=== PATIENT | male | born 1950 | race Caucasian/White ===

== ENCOUNTER → 2022-11-13 06:51 | Day surgery (SDC) | payer OTHER, SELFPAY ==
[2022-11-08 09:24] VITALS: BMI 31.6
--- NOTE | 2022-11-10 07:56 | MHC.SHP ---
Pre-Procedural Eval Section A Date of Service: 11/10/22 The patient is an INPATIENT: No Changes since office visit: No Cold of Flu in the past 2 weeks, No New Medical Problems, No Changes in Medication and No Patient answered all questions The History & Physical has been completed within 30 days and I have reviewed it.: Yes Section B Chief Complaint: Age-related nuclear cataract, right eye Allergies: Allergies Allergy/AdvReac Type Severity Reaction Status Date / Time Xyragcb-SSY-WzS Reductase AdvReac Intermediate Fatigue Verified 11/08/22 09:24 Inhibitor [Vaorhwz-Yoz-Tlr Reductase Inhibitor] Plan Diagnosis/Plan: Unchanged I have reviewed the history and physical and performed a pertinent physical examination on my patient. No changes have occurred unless specified. Time Spent With Patient Time: Total time managing care of this patient today ____ minutes.
--- NOTE | 2022-11-10 09:40 | HO.ANESPROP2 ---
Documented by User: Halie Blackmon NP 11/10/22 09:40 HPI - Anesthesia Eval Consult details Narrative: 72yo M for Right Cataract Extraction IOL Insertion PCP cleared No previous cataract on record PMF Active Problems Active Problems: All Active Problems (Updated 11/08/22 @ 08:58 by Xuan Morales RN) Insect bite (Acute) Past Medical History Medical History BPH (benign prostatic hyperplasia) Cirrhosis COPD (chronic obstructive pulmonary disease) Diabetes Elevated cholesterol Esophageal varices Fatty liver History of COVID-19 HTN (hypertension) RLS (restless legs syndrome) Sleep apnea Surgical History Surgical History H/O colonoscopy History of esophagogastroduodenoscopy (EGD) History of prostate surgery Social History Social History Patient Tobacco Use Status: Former Tobacco user Quit Date: 1999 Tobacco use type: Cigarette Advance Directives: No Advance Directives Information Provided: Yes Meds Allergies Allergy/AdvReac Type Severity Reaction Status Date / Time Qsqqyli-ZKG-NiW Reductase AdvReac Intermediate Fatigue Verified 11/08/22 09:24 Inhibitor [Modfqlb-Pby-Upp Reductase Inhibitor] Home Medications Medication Instructions Recorded Confirmed Last Taken Type albuterol sulfate 90 mcg/actuation 90 mcg inhalation Q4H PRN Wheezing 12/24/20 11/08/22 Unknown History aerosol inhaler (ProAir HFA) doxazosin 8 mg tablet 8 mg PO DAILY 12/24/20 11/08/22 Unknown History finasteride 5 mg tablet 5 mg PO DAILY 12/24/20 11/08/22 Unknown History fluticasone fur. 100 mcg-umeclid 1 ea inhalation DAILY 12/24/20 11/08/22 Unknown History 62.5 mcg-vilant 25 mcg inhalat.powder (Trelegy Ellipta) fluticasone propionate 50 1 spray intranasal DAILY 12/24/20 11/08/22 Unknown History mcg/actuation nasal spray,suspension loratadine 10 mg tablet 10 mg PO DAILY 12/24/20 11/08/22 Unknown History metformin 500 mg tablet,extended 1,000 mg PO BID 12/24/20 11/08/22 Unknown History release 24 hr ropinirole 1 mg tablet 1 mg PO BEDTIME 12/24/20 11/08/22 Unknown History valsartan 40 mg tablet 40 mg PO DAILY 12/24/20 11/08/22 Unknown History dulaglutide 1.5 mg/0.5 mL 1.5 mg subcut QWEEK 11/08/22 11/08/22 Unknown History subcutaneous pen injector (Trulicity) furosemide 40 mg tablet 40 mg PO DAILY 11/08/22 11/08/22 Unknown History nadolol 20 mg tablet 20 mg PO DAILY 11/08/22 11/08/22 Unknown History omeprazole 10 mg capsule,delayed 10 mg PO DAILY 11/08/22 11/08/22 Unknown History release Exam Exam Date and Time: November 10, 2022 0940 Height,Weight and Vital Signs: Height 5 ft 7 in Weight 91.626 kg Assessment and Plan Assessment Anesthesia Assessment: Chart Reviewed Documented by User: Jenni Dotson MD 11/13/22 08:45 [facility] Past Medical History Medical History BPH (benign prostatic hyperplasia) Cirrhosis COPD (chronic obstructive pulmonary disease) Diabetes Elevated cholesterol Esophageal varices Fatty liver History of COVID-19 HTN (hypertension) RLS (restless legs syndrome) Sleep apnea Surgical History Surgical History H/O colonoscopy History of esophagogastroduodenoscopy (EGD) History of prostate surgery History of Problems with Anesthesia: No Social History Social History Patient Tobacco Use Status: Former Tobacco user Quit Date: 1999 Tobacco use type: Cigarette Advance Directives: No Advance Directives Information Provided: Yes Meds Allergies Allergy/AdvReac Type Severity Reaction Status Date / Time Kdojcgf-SIX-DbT Reductase AdvReac Intermediate Fatigue Verified 11/08/22 09:24 Inhibitor [Eiedqap-Hmg-Mbj Reductase Inhibitor] Home Medications Medication Instructions Recorded Confirmed Last Taken Type albuterol sulfate 90 mcg/actuation 90 mcg inhalation Q4H PRN Wheezing 12/24/20 11/08/22 Unknown History aerosol inhaler (ProAir HFA) doxazosin 8 mg tablet 8 mg PO DAILY 12/24/20 11/08/22 Unknown History finasteride 5 mg tablet 5 mg PO DAILY 12/24/20 11/08/22 Unknown History fluticasone fur. 100 mcg-umeclid 1 ea inhalation DAILY 12/24/20 11/08/22 Unknown History 62.5 mcg-vilant 25 mcg inhalat.powder (Trelegy Ellipta) fluticasone propionate 50 1 spray intranasal DAILY 12/24/20 11/08/22 Unknown History mcg/actuation nasal spray,suspension loratadine 10 mg tablet 10 mg PO DAILY 12/24/20 11/08/22 Unknown History metformin 500 mg tablet,extended 1,000 mg PO BID 12/24/20 11/08/22 Unknown History release 24 hr ropinirole 1 mg tablet 1 mg PO BEDTIME 12/24/20 11/08/22 Unknown History valsartan 40 mg tablet 40 mg PO DAILY 12/24/20 11/08/22 Unknown History dulaglutide 1.5 mg/0.5 mL 1.5 mg subcut QWEEK 11/08/22 11/08/22 Unknown History subcutaneous pen injector (Trulicity) furosemide 40 mg tablet 40 mg PO DAILY 11/08/22 11/08/22 Unknown History nadolol 20 mg tablet 20 mg PO DAILY 11/08/22 11/08/22 Unknown History omeprazole 10 mg capsule,delayed 10 mg PO DAILY 11/08/22 11/08/22 Unknown History release Exam Airway Mallampati Class: III TM Dist: >3cm Neck ROM: Full Loose/Missing/Broken Teeth: No Heart: RRR Lungs: CTA Assessment and Plan Assessment Anesthesia Assessment: Anesthesia Plan Discussed Final Anesthetic Review History of Problems with Anesthesia: No NPO: Yes ASA Class: III Final Preanesthetic Review: Meds/Allgs Chart Reviewed, Consent Obtained/Reviewed and Anes Risks/Benef Reviewed Patient Risk: Intermediate Procedure Risk: Low Anesthetic Plan Anesthetic Plan: MAC: Disposition: Standard PACU
--- NOTE | 2022-11-13 09:21 | HO.PNOPHT ---
Ophthalmology Procedure Procedure Date of Service: 11/13/22 Ophthalmology Viscoelastic: Bessie Cosbyt Dual Pack Pro Ophthalmology Lenses: TECELY [id number] (21) Procedure Notes: PREOPERATIVE DIAGNOSIS: Decreased visual acuity right eye secondary to cataract POSTOPERATIVE DIAGNOSIS: Same PROCEDURE: Right cataract extraction with intraocular lens insertion SURGEON: Gal Campuzano M.D. ANESTHESIA: Topical/MAC ESTIMATED BLOOD LOSS: None COMPLICATIONS: None After obtaining informed consent, the patient was brought to the operating room suite and placed in the supine position. After adequate sedation per anesthesia, topical drops of Tetracaine were given to the right eye. The eye was then prepped and draped in the usual sterile fashion. The operating room microscope was then positioned over the operative eye and a lid speculum placed. A paracentesis was created. Viscoelastic was then instilled into the anterior chamber. A three plane incision was then created temporally, utilizing a 2.85 mm keratome. Capsulotomy forceps were then utilized to create a circular tear capsulotomy. Hydrodissection and hydrodelineation were carried out until adequate mobilization of the nucleus occurred. Phacoemulsification was then utilized to remove the dense central nucleus followed by removal of the cortical material utilizing the automated aspiration irrigation unit. Viscoelastic was instilled into the posterior capsular bag followed by placement of a posterior chamber intraocular lens without difficulty. The residual Viscoelastic was then removed utilizing the automated IA machine. The wound was checked and found to be watertight. The patient tolerated the procedure well and the lid speculum was removed. Intracameral injection of Vigamox 0.1 mL followed by a subtenon injection of Kenalog-40 0.2 mL were administered. The patient will be seen in the a.m.
== END | disposition home or self-care (01) ==
PROVIDERS: PCP Internal Medicine; Visit Provider Ophthalmology
PROC: (CPT 66985; principal; 2022-11-13 09:20)
DX: H25.11 Age-related nuclear cataract, right eye (principal); H54.7 Unspecified visual loss; J44.9 Chronic obstructive pulmonary disease, unspecified; K21.9 Gastro-esophageal reflux disease without esophagitis; E11.9 Type 2 diabetes mellitus without complications; I10 Essential (primary) hypertension; Z87.891 Personal history of nicotine dependence; E78.5 Hyperlipidemia, unspecified; Z79.84 Long term (current) use of oral hypoglycemic drugs; Z79.85 Long-term (current) use of injectable non-insulin antidiabetic drugs; Z79.899 Other long term (current) drug therapy
CPT/HCPCS: 66984; 82947; J3010; J3301; V2632

== ENCOUNTER 2022-11-27 06:19 | Day surgery (SDC) | payer OTHER, SELFPAY ==
[2022-11-08 09:26] VITALS: BMI 31.6
--- NOTE | 2022-11-24 07:57 | MHC.SHP ---
Pre-Procedural Eval Section A Date of Service: 11/24/22 The patient is an INPATIENT: No Changes since office visit: No Cold of Flu in the past 2 weeks, No New Medical Problems, No Changes in Medication and No Patient answered all questions The History & Physical has been completed within 30 days and I have reviewed it.: Yes Section B Chief Complaint: Age-related nuclear cataract, left eye Allergies: Allergies Allergy/AdvReac Type Severity Reaction Status Date / Time Orrmrvf-OSZ-FfD Reductase AdvReac Intermediate Fatigue Verified 11/08/22 09:24 Inhibitor [Xrehbex-Kmj-Ung Reductase Inhibitor] Plan Diagnosis/Plan: Unchanged I have reviewed the history and physical and performed a pertinent physical examination on my patient. No changes have occurred unless specified. Time Spent With Patient Time: Total time managing care of this patient today ____ minutes.
--- NOTE | 2022-11-24 14:45 | HO.ANESPROP2 ---
Documented by User: Halie Blackmon NP 11/24/22 14:46 HPI - Anesthesia Eval Consult details Narrative: 72yo M for Left Cataract Extraction IOL Insertion PCP cleared Right eye 11/13/22: Fent 50 PMFSH Active Problems Active Problems: All Active Problems (Updated 11/08/22 @ 08:58 by Xuan Morales RN) Insect bite (Acute) Past Medical History Medical History BPH (benign prostatic hyperplasia) Cirrhosis COPD (chronic obstructive pulmonary disease) Diabetes Elevated cholesterol Esophageal varices Fatty liver History of COVID-19 HTN (hypertension) RLS (restless legs syndrome) Sleep apnea Surgical History Surgical History H/O colonoscopy History of esophagogastroduodenoscopy (EGD) History of prostate surgery History of Problems with Anesthesia: No Social History Social History Patient Tobacco Use Status: Former Tobacco user Quit Date: 25 yrs ago Tobacco use type: Cigarette Use of substances other than those prescribed or required for medical reasons: No Are you DNR?: No Advance Directives: No Advance Directives Information Provided: Yes Meds Allergies Allergy/AdvReac Type Severity Reaction Status Date / Time Zaotqfv-YRG-YfL Reductase AdvReac Intermediate Fatigue Verified 11/27/22 07:19 Inhibitor [Hjxbaku-Uko-Ehi Reductase Inhibitor] Home Medications Medication Instructions Recorded Confirmed Last Taken Type albuterol sulfate 90 mcg/actuation 90 mcg inhalation Q4H PRN Wheezing 12/24/20 11/08/22 Unknown History aerosol inhaler (ProAir HFA) doxazosin 8 mg tablet 8 mg PO DAILY 12/24/20 11/08/22 Unknown History finasteride 5 mg tablet 5 mg PO DAILY 12/24/20 11/08/22 Unknown History fluticasone fur. 100 mcg-umeclid 1 ea inhalation DAILY 12/24/20 11/27/22 11/27/22 06:00 History 62.5 mcg-vilant 25 mcg inhalat.powder (Trelegy Ellipta) fluticasone propionate 50 1 spray intranasal DAILY 12/24/20 11/08/22 Unknown History mcg/actuation nasal spray,suspension loratadine 10 mg tablet 10 mg PO DAILY 12/24/20 11/08/22 Unknown History metformin 500 mg tablet,extended 1,000 mg PO BID 12/24/20 11/08/22 Unknown History release 24 hr ropinirole 1 mg tablet 1 mg PO BEDTIME 12/24/20 11/08/22 Unknown History valsartan 40 mg tablet 40 mg PO DAILY 12/24/20 11/08/22 Unknown History dulaglutide 1.5 mg/0.5 mL 1.5 mg subcut QWEEK 11/08/22 11/08/22 Unknown History subcutaneous pen injector (Trulicity) furosemide 40 mg tablet 40 mg PO DAILY 11/08/22 11/08/22 Unknown History nadolol 20 mg tablet 20 mg PO DAILY 11/08/22 11/08/22 Unknown History omeprazole 10 mg capsule,delayed 10 mg PO DAILY 11/08/22 11/08/22 Unknown History release Exam Exam Date and Time: November 24, 2022 1445 Height,Weight and Vital Signs: Height 5 ft 7 in Weight 91.626 kg Assessment and Plan Assessment Anesthesia Assessment: Chart Reviewed Final Anesthetic Review History of Problems with Anesthesia: No Documented by User: Jenni Dotson MD 11/27/22 07:43 [facility] Past Medical History Medical History BPH (benign prostatic hyperplasia) Cirrhosis COPD (chronic obstructive pulmonary disease) Diabetes Elevated cholesterol Esophageal varices Fatty liver History of COVID-19 HTN (hypertension) RLS (restless legs syndrome) Sleep apnea Surgical History Surgical History H/O colonoscopy History of esophagogastroduodenoscopy (EGD) History of prostate surgery Social History Social History Patient Tobacco Use Status: Former Tobacco user Quit Date: 25 yrs ago Tobacco use type: Cigarette Use of substances other than those prescribed or required for medical reasons: No Are you DNR?: No Advance Directives: No Advance Directives Information Provided: Yes Meds Allergies Allergy/AdvReac Type Severity Reaction Status Date / Time Krxjfzr-ICP-TxL Reductase AdvReac Intermediate Fatigue Verified 11/27/22 07:19 Inhibitor [Nksvbmi-Ved-Lpe Reductase Inhibitor] Home Medications Medication Instructions Recorded Confirmed Last Taken Type albuterol sulfate 90 mcg/actuation 90 mcg inhalation Q4H PRN Wheezing 12/24/20 11/08/22 Unknown History aerosol inhaler (ProAir HFA) doxazosin 8 mg tablet 8 mg PO DAILY 12/24/20 11/08/22 Unknown History finasteride 5 mg tablet 5 mg PO DAILY 12/24/20 11/08/22 Unknown History fluticasone fur. 100 mcg-umeclid 1 ea inhalation DAILY 12/24/20 11/27/22 11/27/22 06:00 History 62.5 mcg-vilant 25 mcg inhalat.powder (Trelegy Ellipta) fluticasone propionate 50 1 spray intranasal DAILY 12/24/20 11/08/22 Unknown History mcg/actuation nasal spray,suspension loratadine 10 mg tablet 10 mg PO DAILY 12/24/20 11/08/22 Unknown History metformin 500 mg tablet,extended 1,000 mg PO BID 12/24/20 11/08/22 Unknown History release 24 hr ropinirole 1 mg tablet 1 mg PO BEDTIME 12/24/20 11/08/22 Unknown History valsartan 40 mg tablet 40 mg PO DAILY 12/24/20 11/08/22 Unknown History dulaglutide 1.5 mg/0.5 mL 1.5 mg subcut QWEEK 11/08/22 11/08/22 Unknown History subcutaneous pen injector (Trulicity) furosemide 40 mg tablet 40 mg PO DAILY 11/08/22 11/08/22 Unknown History nadolol 20 mg tablet 20 mg PO DAILY 11/08/22 11/08/22 Unknown History omeprazole 10 mg capsule,delayed 10 mg PO DAILY 11/08/22 11/08/22 Unknown History release Exam Airway Mallampati Class: III TM Dist: >3cm Neck ROM: Full Loose/Missing/Broken Teeth: No Heart: RRR Lungs: CTA Assessment and Plan Assessment Anesthesia Assessment: Anesthesia Plan Discussed Final Anesthetic Review NPO: Yes ASA Class: III Final Preanesthetic Review: Meds/Allgs Chart Reviewed, Consent Obtained/Reviewed and Anes Risks/Benef Reviewed Patient Risk: Intermediate Procedure Risk: Low Anesthetic Plan Anesthetic Plan: MAC: Disposition: Standard PACU
[2022-11-27] MEDS: Tetracaine HCl/PF 0.5% Oph Sol 4 ML DROPS 1 DROP EYE-LEFT (06:57)
[2022-11-27] MEDS: Cyclopentolate 1 % Ophth Sol 2 ML DRPBTL 1 DROP EYE-LEFT ×3 (06:59→07:12)
[2022-11-27] MEDS: Tropicamide 1 % Ophth Sol 3 ML BTL 1 DROP EYE-LEFT ×3 (07:01→07:14)
[2022-11-27] MEDS: Ketorolac Tromethamine 0.5% Op 5 ML DROPS 1 DROP EYE-LEFT ×3 (07:03→07:15)
[2022-11-27 07:04] LABS: Glucose, Whole Blood 123 mg/dL (60-115)
[2022-11-27] MEDS: Phenylephrine HCL 2.5% Oph SoL 2 ML BOTTLE 1 DROP EYE-LEFT ×3 (07:04→07:16)
[2022-11-27 07:11] VITALS: BP 128/64; PULSE 51; RESP 16; TEMP 36.1; O2SAT 93
[2022-11-27] MEDS: Lactated Ringers 500 ML 50 ML IV (07:17)
--- NOTE | 2022-11-27 08:05 | HO.PNOPHT ---
Ophthalmology Procedure Procedure Date of Service: 11/27/22 Ophthalmology Viscoelastic: Healon Duet Dual Pack Pro Ophthalmology Lenses: TECNIS [id number] (20.5) Procedure Notes: PREOPERATIVE DIAGNOSIS: Decreased visual acuity left eye secondary to cataract POSTOPERATIVE DIAGNOSIS: Same PROCEDURE: Left cataract extraction with intraocular lens insertion SURGEON: Gal Campuzano M.D. ANESTHESIA: Topical/MAC ESTIMATED BLOOD LOSS: None COMPLICATIONS: None After obtaining informed consent, the patient was brought to the operation room suite and placed in the supine position. After adequate sedation per anesthesia, topical drops of Tetracaine were given to the left eye. The eye was then prepped and draped in the usual sterile fashion. The operating room microscope was then positioned over the operative eye and a lid speculum placed. A paracentesis was created. Viscoelastic was then instilled into the anterior chamber. A three plane incision was then created temporally, utilizing a 2.85 mm keratome. Capsulotomy forceps were then utilized to create a circular tear capsulotomy. Hydrodissection and hydrodelineation were carried out until adequate mobilization of the nucleus occurred. Phacoemulsification was then utilized to remove the dense central nucleus followed by removal of the cortical material utilizing the automated aspiration irrigation unit. Viscoat elastic was instilled into the posterior capsular bag followed by placement of a posterior chamber intraocular lens without difficulty. The residual Viscoat elastic was then removed utilizing the automated IA machine. The wound was check and found to be watertight. The patient tolerated the procedure well and the lid speculum was removed. Intracameral injection of Vigamox 0.1 mL followed by a subtenon injection of Kenalog-40 0.2 mL were administered. The patient will be seen in the a.m.
[2022-11-27 08:37] VITALS: BP 139/69; PULSE 53; RESP 18; TEMP 36.2; O2SAT 96
== END 2022-11-27 08:42 | disposition home or self-care (01) ==
PROVIDERS: PCP Internal Medicine; Visit Provider Ophthalmology
PROC: (CPT 66985; principal; 2022-11-27 08:00)
DX: H25.12 Age-related nuclear cataract, left eye (principal); H54.7 Unspecified visual loss; E11.9 Type 2 diabetes mellitus without complications; I10 Essential (primary) hypertension; E78.5 Hyperlipidemia, unspecified; K21.9 Gastro-esophageal reflux disease without esophagitis; J44.9 Chronic obstructive pulmonary disease, unspecified; Z87.891 Personal history of nicotine dependence; Z79.84 Long term (current) use of oral hypoglycemic drugs; Z79.85 Long-term (current) use of injectable non-insulin antidiabetic drugs; Z79.899 Other long term (current) drug therapy
CPT/HCPCS: 66984; 82947; J3010; J3301; V2632

== ENCOUNTER 2024-04-28 12:08 | Outpatient (AMB) | payer OTHER, SELFPAY ==
[2024-04-28 12:48] VITALS: BP 118/64; PULSE 71; O2SAT 98
--- NOTE | 2024-04-28 12:48 | AM.OFFWIN_ITS ---
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 While every effort has been made to ensure accuracy, vice president of news errors may have been included. The patient is a 73 year old male who presents to the clinic today with fractured left 4th finger. He reports that on Sunday he fell at a restaurant, he was evaluated in the emergency room at [facility], where he had x-rays advising that he had a fracture. He is pending follow up with his primary care provider for referral to ortho. He was placed in a finger splint. He was not given instructions for how to remove the splint, or how to provide care to the area, so he wore it in the shower, it got wet, and he was hoping to get this change today. He denies any increased pain. He is right-hand dominant. [facility] Medical History BPH (benign prostatic hyperplasia) Cirrhosis COPD (chronic obstructive pulmonary disease) Diabetes Elevated cholesterol Esophageal varices Fatty liver History of COVID-19 HTN (hypertension) RLS (restless legs syndrome) Sleep apnea Surgical History H/O colonoscopy History of esophagogastroduodenoscopy (EGD) History of prostate surgery Social History Patient Tobacco Use Status: Former Tobacco user Tobacco use type: Cigarette Review of Systems Const All systems reviewed & are unremarkable except as noted in HPI and below Physical Exam Vital Signs: Last Vital Signs Pulse 71 04/28/24 12:48 BP 118/64 04/28/24 12:48 Pulse Ox 98 04/28/24 12:48 Oxygen Delivery Method Room Air 04/28/24 12:48 Const General: cooperative, healthy appearing, comfortable, no acute distress and well developed Orientation/consciousness: patient oriented x3 Limitations: no limitations Resp Effort & Inspection: normal respiratory effort and able to speak in complete sentences Skin General skin exam: no rashes or lesions noted Neuro General: patient oriented x3 Extrem Other: Left 4th finger ecchymosis, finger splint in place, removed. New splint placed. Tender to palpation along PIP. Assessment & Plan Assessment & Plan (1) Finger pain, left: Code(s): M79.645 - Pain in left finger(s) Plan: Secondary to fracture in left 4th finger. Splint replaced per patient request. Advised patient to follow up with PCP for referral to ortho as previously planned. Provided with instructions for how to change splint and how to remove if needed. Plan See above for full details and plan. Coding Level of Care Code Est Pt Level 3 (49707) Diagnoses Finger pain, left M79.645
== END 2024-04-28 13:30 | disposition home or self-care (01) ==
PROVIDERS: PCP Internal Medicine; Visit Provider Registered Nurse
DX: M79.645 Pain in left finger(s) (principal)

== ENCOUNTER → 2024-04-28 12:08 | Outpatient (BNVA) | payer OTHER, SELFPAY | PROVIDERS: PCP Internal Medicine; Visit Provider Registered Nurse | DX: S62.605D Fracture of unspecified phalanx of left ring finger, subsequent encounter for fracture with routine healing (principal); W19.XXXD Unspecified fall, subsequent encounter | CPT/HCPCS: 29130; 99212 ==